=== PATIENT | female | born 1960 | race Caucasian/White ===

== ENCOUNTER → 2019-11-24 09:54 | Outpatient (CLI) | payer OTHER, MEDICAID, SELFPAY ==
[2019-11-26 06:02] LABS: COVID19 Sendout Not Detected (Not Detect)
== END ==
PROVIDERS: Visit Provider Physician Assistant
DX: Z01.812 Encounter for preprocedural laboratory examination (principal)
CPT/HCPCS: 87635

== ENCOUNTER 2019-11-27 13:49 | Outpatient (CLI) | payer OTHER, MEDICAID, SELFPAY ==
[2019-11-27] VITALS (10 sets, daily range): BP systolic 103–154; BP diastolic 40–106; PULSE 85–101; RESP 15–17; TEMP 36.7; O2SAT 92–98
--- NOTE | 2019-11-27 13:51 | DI.RAD.S_ITS ---
PROCEDURE: PAIN L/SI FACET INJ/BLK 1STL INDICATIONS: SPONDYLOSIS COMPARISON: None. FINDINGS: Fluoroscopic spot filming was performed to verify placement of spinal needles at the L4-L5, L5-S1 level(s), as labeled on the films. Appropriate location(s) of the needle tip(s) was confirmed by injection of iodinated contrast. Dictated by: Guillermo Wakefield M.D. on 11/27/2019 at 15:14 Approved by: Guillermo Wakefield M.D. on 11/27/2019 at 15:15
[2019-11-27] MEDS: BUPIVACAINE 0.5% (PF) VIAL 2 ML INJ (14:44)
[2019-11-27] MEDS: BETAMETHASONE 30 MG/5 ML MDV 12 MG INJ (14:44)
[2019-11-27] MEDS: MIDAZOLAM 5 MG/5 ML VIAL IV (14:45)
[2019-11-27] MEDS: IOPAMIDOL 15 ML VIAL 3 ML INJ (14:45)
[2019-11-27] MEDS: LIDOCAINE 1% 20 ML 10 ML INJ (14:45)
[2019-11-27] MEDS: fentaNYL 100 MCG/2 ML INJ 50 MCG IV (14:46)
--- NOTE | 2019-11-27 14:54 | P.PCN_ITS ---
Date/Time/Diagnoses Date of procedure: 11/27/19 Time of procedure: 14:54 Pre-procedure diagnosis: 1. FACET ARTHROPATHY 2. AXIAL LBP 3. MULTILEVEL DDD Post-procedure diagnosis: same Procedure Notes Procedure: 1. FLUOROSCOPICALLY GUIDED CONTRAST CONTROLLED FACET JOINT INJECTIONS BILATERAL L4/5, L5/S1 Indications: Darin is referred for treatment of Axial LBP Physician: Jamal Moore Total Fluoroscopy time (seconds): 11 Total sedation minutes: 15 Complications: none Procedure in detail & Post-procedure care: FINDINGS Multilevel Facet Arthropathy with Clinically significant axial LBP DESCRIPTION OF PROCEDURE Fluoroscopically guided, contrast-controlled bilateral L4/5, L5/S1 facet joint injections. Following review of allergy and review of potential side effects and compl ications, including, but not necessarily limited to, infection, allergic reaction, local tissue breakdown, stroke, temporary or permanent nerve injury, paralysis, and possible , the patient indicated that the patient understood and agreed to proceed. An informed consent document was signed by the patient, witnessed by a nurse, and placed in the patient's chart. Additionally, other treatment options including medications, modalities, and physical therapy were reviewed with the patient. After review of previous anaesthesic history and IV conscious sedation the patient was deemed safe to proceed with today?s procedure with IV conscious sedation as ASA class II designation. Safety time-out was performed to confirm patient ID, procedure to be performed and site of procedure. IV sedation was accomplished with a combination of 3mg of Versed and 50mcg of Fentanyl was administered by the RN after DO order, titrated to patient comfort during the course of the procedure while the patient remained responsive to all verbal commands In the prone position, following sterile prep and drape of the lumbar region, the posterior aspect of the L4/5, L5/S1 facet joints were identified fluorosco pically. The skin was anesthetized via a 25-gauge 1.5-inch needle with 1% lidocaine solution into the corresponding facet joints. At this point, a 22- gauge 3.5-inch spinal needle was atraumatically introduced and advanced under fluoroscopic guidance into the corresponding facet joints. Following negative aspiration, injections of approximately 0.2cc of Isovue 200 confirmed interarticular placement without vascular uptake. The identical procedure was then performed at the L4/5, L5/S1 facet joints on the left. Radiological data, including multiple fluoroscopic views of the lumbosacral spi ne, reveal a spinal needle at the L4/5, L5/S1 facet joints bilaterally. Subsequent views show flow of contrast material both superiorly and inferiorly within the joint space without vascular or intrathecal uptake. At this point, a total of 0.5cc including a mixture of 0.25cc Marcaine and 0.25cc betamethasone was injected without complication into each of the corresponding facet joints. The patient tolerated the procedure well without signs or symptoms of complications prior to transfer to the recovery area continued monitoring without incident. The patient was then transferred to the recovery area where they were observed for an appropriate period of time after the injection. The patient reported a VAS score of 7 prior to the procedure and a post- procedure VAS of 0. POST OP INSTRUCTIONS The patient was provided a Pain Log to continue to record their response to the target-specific procedure prior to follow-up visit with their referring physician. Additionally, specific post-injection care instructions and a contact number to our office were provided if concerns arise regarding possible complications associated with the procedure are suspected.
--- NOTE | 2019-11-27 15:06 | PC.NURSE ---
Pt returned to preproc room by , 2PA to transfer from wc to chair. Monitoring resumed
--- NOTE | 2019-11-27 15:40 | PC.NURSE ---
Pt tolerated procedure well. VSS upon transfer to post procedure room to [facility]ATHER[facility] Burt. All sedaiton meds given by Vidhi Hicks. All other documented meds adminsitered by Dr Moore.
== END 2019-11-27 15:27 | disposition home or self-care (01) ==
PROVIDERS: Referring Provider Physical Medicine & Rehabilitation; Visit Provider Physical Medicine & Rehabilitation
DX: M47.816 Spondylosis without myelopathy or radiculopathy, lumbar region (principal); M47.817 Spondylosis without myelopathy or radiculopathy, lumbosacral region; M54.5 Low back pain; M51.36 Other intervertebral disc degeneration, lumbar region; M51.37 Other intervertebral disc degeneration, lumbosacral region
CPT/HCPCS: 64493; 64494; 99152; J0702; J2250; J3010

== ENCOUNTER → 2020-03-31 13:28 | Outpatient (CLI) | payer OTHER, MEDICAID, SELFPAY ==
--- NOTE | 2020-03-31 13:30 | DI.RAD.S_ITS ---
PROCEDURE: XR LUMBAR SPINE MIN 4V INDICATIONS: update imaging TECHNIQUE: 5 views of the lumbar spine were acquired. COMPARISON: None. FINDINGS: Bones: 5 nonrib-bearing vertebrae are present. There is normal bony alignment. No vertebral body compression fractures. No suspicious bony lesions. Note is made of a moderate degree of degenerative disc disease at L 3-4, L4-5, and especially L5-S1. Facet osteoarthritis is moderate at L3-4, moderately severe at L4-5 and severe at L5-S1. There is mild grade 1 anterolisthesis of L4 on L5. The spinal and foraminal stenosis present is progressively more prominent as the L5-S1 level is reached. Significant spinal and foraminal stenosis would be expected at L4-5 and especially L5-S1. Soft tissues: Overlying bowel gas pattern is normal. No suspicious soft tissue calcifications. Oblique images: No pars defects. IMPRESSION: Chronic degenerative changes with significant spinal and foraminal stenosis likely associated especially at L4-5 and L5-S1 as discussed above. Dictated by: Yaakov Jenkins M.D. on 03/31/2020 at 14:25 Approved by: Yaakov Jenkins M.D. on 03/31/2020 at 14:27
== END ==
PROVIDERS: Referring Provider Physical Medicine & Rehabilitation; Visit Provider Physical Medicine & Rehabilitation
DX: M47.816 Spondylosis without myelopathy or radiculopathy, lumbar region (principal); M47.817 Spondylosis without myelopathy or radiculopathy, lumbosacral region; M51.36 Other intervertebral disc degeneration, lumbar region; M51.37 Other intervertebral disc degeneration, lumbosacral region; M43.16 Spondylolisthesis, lumbar region; E11.42 Type 2 diabetes mellitus with diabetic polyneuropathy; F43.10 Post-traumatic stress disorder, unspecified; Z79.4 Long term (current) use of insulin
CPT/HCPCS: 72110; 99213

== ENCOUNTER → 2020-05-18 13:35 | Outpatient (CLI) | payer OTHER, MEDICAID, SELFPAY ==
[2020-05-18 17:27] LABS: COVID19 -Nasal RAPID Negative (Negative)
== END ==
PROVIDERS: Referring Provider Physical Medicine & Rehabilitation; Visit Provider Physical Medicine & Rehabilitation
DX: Z01.812 Encounter for preprocedural laboratory examination (principal); Z20.822 Contact with and (suspected) exposure to COVID-19
CPT/HCPCS: 87635; C9803

== ENCOUNTER 2020-05-20 12:33 | Outpatient (CLI) | payer OTHER, MEDICAID, SELFPAY ==
[2020-05-20] VITALS (9 sets, daily range): BP systolic 131–148; BP diastolic 68–96; PULSE 87–92; RESP 15–26; TEMP 37; O2SAT 93–96
--- NOTE | 2020-05-20 12:37 | DI.RAD.S_ITS ---
PROCEDURE: PAIN L/S FACET INJ/BLK 1ST DARIEN COMPARISON: [facility], XA, PAIN L/SI FACET INJ/BLK 1STL, 11/27/2019, 13:41. [facility], CR, XR LUMBAR SPINE MIN 4V, 03/31/2020, 13:49. INDICATIONS: SPONDYLOSIS FINDINGS: Fluoroscopic spot filming was performed to verify placement of a spinal needles at the L4, L5, and S1 levels on both sides, as labeled on the films. Appropriate location of the needle tips was confirmed by injection of iodinated contrast. IMPRESSION: Intraprocedural examination within normal limits. Dictated by: Kaveh Trammell M.D. on 05/20/2020 at 13:31 Approved by: Kaveh Trammell M.D. on 05/20/2020 at 13:32
[2020-05-20] MEDS: fentaNYL 100 MCG/2 ML INJ 50 MCG IV (13:16)
[2020-05-20] MEDS: MIDAZOLAM 5 MG/5 ML VIAL IV (13:16)
[2020-05-20] MEDS: BUPIVACAINE 0.5% (PF) VIAL 5 ML INJ (13:32)
[2020-05-20] MEDS: LIDOCAINE 1% 20 ML 10 ML INJ (13:32)
[2020-05-20] MEDS: IOPAMIDOL 15 ML VIAL 3 ML INJ (13:33)
--- NOTE | 2020-05-20 13:39 | P.PCN_ITS ---
Date/Time/Diagnoses Date of procedure: 05/20/20 Time of procedure: 13:39 Pre-procedure diagnosis: 1. FACET ARTHROPATHY Post-procedure diagnosis: same Procedure Notes Procedure: 1. BILATERAL- L4, L5 and S1 DIAGNOSTIC MB BLOCKS with LA Anesthetic Indications: Darin is referred by Dr. Hernandez for treatment of Bilateral Axial LBP. Physician: Jamal Moore Total Fluoroscopy time (seconds): 13 Total sedation minutes: 17 Complications: none Procedure in detail & Post-procedure care: DESCRIPTION OF PROCEDURE Fluoroscopically guided, contrast-controlled bilateral L4, L5 and S1 medial branch blocks with 0.5cc of 0.5% Marcaine. Following review of allergy and review of potential side effects and complications, including, but not necessarily limited to, infection, allergic reaction, local tissue breakdown, nerve injury, paralysis, stroke and possible , the patient indicated that the patient understood and agreed to proceed. An informed consent document was signed by the patient, witnessed by a nurse, and placed in the patient's chart. After review of previous anaesthesic history and IV conscious sedation the patient was deemed safe to proceed with today's procedure with IV conscious sedation as ASA class II designation. Safety time-out was performed to confirm patient ID, procedure to be performed and site of procedure. IV sedation was accomplished with a combination of 3mg of Versed and 50mcg of Fentanyl was administered by the RN after DO order, titrated to patient comfort during the course of the procedure while the patient remained responsive to all verbal commands In the prone position, following sterile prep and drape of the lumbar region, the right L4, L5 and S1 anatomical location of the medial branch of the dorsal ramus was identified fluoroscopically. Subsequently an anesthetic skin wheal using 1% lidocaine solution was initiated at each of the anatomical spots. Subsequently then a 22-gauge 3.5-inch spinal needle was atraumatically introduced and advanced under fluoroscopic guidance at each of the corresponding sites at the right L4, L5 and S1 MB. After negative aspiration, 0.2cc of Isovue 200 was injected, confirming placement without vascular or intrathecal uptake. Subsequently then 0.5cc of 0.5% Marcaine solution was injected at each of the corresponding sites at the right L4, L5 and S1 medial branch locations. The identical procedure was replicated on the left. The patient tolerated the procedure well without signs or symptoms of complications prior to transfer to the recovery area continued monitoring without incident. Post-procedure, the patient was monitored initiating provocative activities to measure the amount of relief from block of the facetogenic pain. The patient reported a VAS of 7 prior to the procedure and a post-procedure VAS of 1. It has been a pleasure to assist in the diagnostic and therapeutic care of your patient. POST OP INSTRUCTIONS The patient was provided with a Pain Log to complete over the next several hours and subsequent days prior to the patient's follow up with the ordering physician. If the patient has pump assembler relief to the solution applied, then they may be a candidate for medial branch rhizotomy. The patient is aware, was provided, once again, with a Pain Log and will follow up with the referring physician for review and clinical correlation
== END 2020-05-20 14:00 | disposition home or self-care (01) ==
LOC: RAD 12:37
PROVIDERS: Referring Provider Physical Medicine & Rehabilitation; Visit Provider Physical Medicine & Rehabilitation
DX: M47.816 Spondylosis without myelopathy or radiculopathy, lumbar region (principal)
CPT/HCPCS: 64493; 64494; 99152; J2250; J3010